=== PATIENT | male | born 1965 | race Hispanic/Latino ===

== ENCOUNTER 2018-07-16 10:12 | Emergency (ER) | payer BC ==
[~2018-07-16] VITALS: Ht 177.8 cm; Wt 102.1 kg
[2018-07-16] MEDS ORDERED: LOSARTAN POTASS25 MG PO (10:25)
[2018-07-16] MEDS ORDERED: TIZANIDINE HCL4 MG PO (10:48)
[2018-07-16] MEDS ORDERED: DICYCLOMINE HCL20 MG PO (10:48)
--- NOTE | 2018-07-16 11:46 | Diagnostic Imaging Report ---
EXAMINATION: Head and cervical spine CT without contrast. HISTORY: Right-sided tingling. Tingling sensation in the top of the head and left finger for the last 2 weeks COMPARISON: None. TECHNIQUE: Multidetector axial images were obtained without contrast from the foramen magnum to the vertex and through the cervical spine. The images were reconstructed using brain and bone algorithms. Thin section brain images were reformatted into coronal and sagittal planes. Dose modulation, iterative reconstruction, and/or weight based adjustment of the mA/kV was utilized to reduce the radiation dose to as low as reasonably achievable. HEAD CT FINDINGS: Skull: No lytic or blastic lesions. No fractures. Parenchyma: Normal. No mass, hemorrhage or CT evidence of acute vascular insult. Brain volume: Normal for age. Ventricles: Minimal asymmetry of the temporal bones, the right is slightly more prominent than the left, which could indicate right medial temporal volume loss, otherwise this corresponds to an incidental finding without clinical significance. Arteries: No density suggestive of thrombus. Dural sinuses: No abnormal density. Extra-axial spaces: No abnormal density. Foramen magnum: No mass, Chiari malformation, or basilar invagination. Sella: No obvious mass. Paranasal/mastoid sinuses: Imaged portions unremarkable. CERVICAL SPINE CT FINDINGS: Alignment:Normal alignment and lordosis. Soft tissues: Normal. Vertebrae: Minimal chronic compression of the C5 and C6 vertebral bodies. Otherwise normal height and density. No acute fracture, infection or neoplasm. Degenerative changes: C1-C2: Normal C2-C3: Normal C3-C4: Normal C4-C5: Mild uncovertebral arthrosis on the left with minimal left foraminal narrowing. C5-C6: Small right posterolateral disc osteophyte and mild uncovertebral arthrosis, moderate right canal narrowing C6-C7: Normal C7-T1: Normal IMPRESSION: Head CT: No intracranial abnormalities. Cervical spine CT: 1. No acute cervical spine abnormalities. 2. Mild to moderate degenerative canal narrowing at C5-C6. Signed by: Dr. Naty Haines M.D. on 07/16/2018 11:43 AM
[2018-07-16] MEDS ORDERED: PREDNISONE20 MG PO (12:18)
[2018-07-16] MEDS ORDERED: ULTRAM50 MG PO (12:21)
[2018-07-16] MEDS ORDERED: VALIUM2 MG PO (12:22)
== END 2018-07-16 12:43 | disposition home or self-care (01) ==
LOC: ER 10:12
DX: M54.2 Cervicalgia (principal); S16.1XXA Strain of muscle, fascia and tendon at neck level, initial encounter; S13.4XXA Sprain of ligaments of cervical spine, initial encounter; M54.12 Radiculopathy, cervical region; G89.29 Other chronic pain
CPT/HCPCS: 70450; 72125; 99284